=== PATIENT | male | born 1995 | race Caucasian/White ===

== ENCOUNTER 2018-05-31 16:48 | Emergency (ER) | payer OTHER ==
[~2018-05-31] VITALS: Ht 175.3 cm; Wt 86.2 kg
== END 2018-05-31 18:00 | disposition home or self-care (01) ==
LOC: ER 16:48
DX: S61.012A Laceration without foreign body of left thumb without damage to nail, initial encounter (principal); W45.8XXA Other foreign body or object entering through skin, initial encounter; Y93.89 Activity, other specified; Y92.69 Other specified industrial and construction area as the place of occurrence of the external cause; Y99.8 Other external cause status

== ENCOUNTER 2018-06-08 08:34 | Emergency (ER) | payer OTHER ==
[~2018-06-08] VITALS: Ht 175.3 cm; Wt 86.2 kg
== END 2018-06-08 10:09 | disposition home or self-care (01) ==
LOC: ER 08:34
DX: Z48.02 Encounter for removal of sutures (principal)